=== PATIENT | female | born 1940 | race Hispanic/Latino ===

== ENCOUNTER → 2025-03-31 | Outpatient (REF) | payer MEDICARE ==
[~2025-03-31] MED LIST: IOPAMIDOL 370 MG/ML 100 ML INFUS..BTL INJ ONE; METOPROLOL TARTRATE 25 MG TAB ONE; METOPROLOL TARTRATE INJ 1 MG/ML VIAL ONE; NITROGLYCERIN 0.4 MG SUBL ONE; SODIUM CHLORIDE 0.9% 0 ML ONE
[2025-03-31 09:12] LABS: EST GLOMERULAR FILTRATION RATE 62.0 ML/MIN (>=60)
== END ==
LOC: CT 08:26
PROVIDERS: ATTEND Internal Medicine Cardiovascular Disease
DX: I35.0 Nonrheumatic aortic (valve) stenosis (principal)
CPT/HCPCS: 36415; 75574; 82565; 84520; Q9967; J7050